=== PATIENT | female | born 1995 | race Caucasian/White ===

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

== ENCOUNTER 2017-04-24 18:54 | Inpatient (IN) | payer OTHER ==
[~2017-04-24] VITALS: Ht 154.9 cm; Wt 49.6 kg
[~2017-04-24 18:54] MED LIST: BCPILLS PO; CYAN1LOZ PO
--- NOTE | 2017-04-24 19:29 | EMERGENCY ROOM VISIT NOTE ---
History Report prepared by Livier: Hilario Miranda Under the Supervision of: Dr. Jacob Lopez M.D. First contact with patient: 18:56 Chief Complaint: MENTAL HEALTH EVALUATION Stated Complaint: MHID History of Present Illness The patient is a 21 year old female who presents to the Emergency Room for a mental health evaluation. She presents via EMS after an attempt at suicide by hanging. The patient wrapped a belt around her neck and attached it to the ceiling. While on a chair, she slipped and fell off the chair. The belt did not hold, and she fell onto the floor. She did not lose consciousness. She denies any neck pain, difficulty swallowing, or difficulty breathing. She has a past history of anxiety, depression, suicidal ideations, and previous suicide attempts. The patient states that she has been going to [facility] for counselling and has not been into a therapist's office. She takes Abilify, Doxycycline, control, and Lexapro. She takes the Doxycycline for her acne, but has not taken it for the past week secondary to not getting her prescription refilled. She has been taking her medications normally without any changes. She notes that she has been in contact with a boy with whom she has been exchanging text messages. She texted him before and after the incident today. Source of History: patient Onset: [employer] Position: other (Mental Health) Symptom Intensity: severe Quality: other (Suicide attempt) Timing: constant Associated Symptoms: No neck pain, No SOB Note: She denies any difficulty swallowing or breathing. Review of Systems See HPI for pertinent positives & negatives. A total of 10 systems reviewed and were otherwise negative. Past Medical & Surgical Medical Problems: (1) Anxiety (2) Depression (3) Suicidal ideation (4) Suicide attempt Family History Patient reports no known family medical history. Social History Smoking Status: Never Smoker Smokeless Tobacco Use: No Drug Use: none Marital Status: single Occupation Status: student Current/Historical Medications Scheduled Aripiprazole (Abilify), 5 MG PO DAILY Control Pills ( Control Pills), 1 TAB PO DAILY Cyanocobalamin (Vitamin B 12), Unknown Dose PO DAILY Doxycycline Monohydrate (Monodox), 100 MG PO DAILY Escitalopram Oxalate (Lexapro), 15 MG PO DAILY Allergies Coded Allergies: No Known Allergies (Unverified , 04/24/17) Physical Exam Vital Signs Date Time Temp Pulse Resp B/P (MAP) Pulse Ox O2 Delivery O2 Flow Rate FiO2 04/24/17 18:55 36.7 68 14 107/64 97 Room Air Physical Exam GENERAL: Patient is a healthy-appearing well-nourished female HEAD: Normocephalic atraumatic EYES: Ocular movements intact pupils equal and react to light OROPHARYNX mucous membranes are moist no exudates present no erythema or edema present NECK: Supple no nuchal rigidity. No signs of trauma. No stridor. No abrasions. CHEST: Good equal expansion LUNGS: Clear and equal to auscultation CARDIAC: Normal S1 and S2 ABDOMEN: Soft nontender no guarding BACK: No CVA tenderness EXTREMITIES: No pain upon palpation normal muscle strength in all groups no clubbing cyanosis or edema NEURO: Patient is following commands and answering questions appropriately. Alert and oriented x3 Cranial Nerves 2-12 grossly intact PSYCH: Flat affect. Admits to trying to hang herself. Medical Decision & Procedures Laboratory Results 04/24/17 19:34 Red Blood Count 3.91, Mean Corpuscular Volume 91.8, Mean Corpuscular Hemoglobin 31.5, Mean Corpuscular Hemoglobin Concent 34.3, Mean Platelet Volume 9.4, Neutrophils (%) (Auto) 54.2, Lymphocytes (%) (Auto) 35.0, Monocytes (%) (Auto) 9.5, Eosinophils (%) (Auto) 0.8, Basophils (%) (Auto) 0.3, Neutrophils # (Auto) 3.31, Lymphocytes # (Auto) 2.14, Monocytes # (Auto) 0.58, Eosinophils # (Auto) 0.05, Basophils # (Auto) 0.02 04/24/17 19:34 Test 04/24/17 19:29 04/24/17 19:34 Bedside Glucose 80 mg/dl (70-90) White Blood Count 6.11 K/uL (4.8-10.8) Red Blood Count 3.91 M/uL (4.2-5.4) Hemoglobin 12.3 g/dL (12.0-16.0) Hematocrit 35.9 % (37-47) Mean Corpuscular Volume 91.8 fL (80-100) Mean Corpuscular Hemoglobin 31.5 pg (25-34) Mean Corpuscular Hemoglobin Concent 34.3 g/dl (32-36) Platelet Count 203 K/uL (130-400) Mean Platelet Volume 9.4 fL (7.4-10.4) Neutrophils (%) (Auto) 54.2 % Lymphocytes (%) (Auto) 35.0 % Monocytes (%) (Auto) 9.5 % Eosinophils (%) (Auto) 0.8 % Basophils (%) (Auto) 0.3 % Neutrophils # (Auto) 3.31 K/uL (1.4-6.5) Lymphocytes # (Auto) 2.14 K/uL (1.2-3.4) Monocytes # (Auto) 0.58 K/uL (0.11-0.59) Eosinophils # (Auto) 0.05 K/uL (0-0.5) Basophils # (Auto) 0.02 K/uL (0-0.2) RDW Standard Deviation 43.2 fL (36.4-46.3) RDW Coefficient of Variation 12.8 % (11.5-14.5) Immature Granulocyte % (Auto) 0.2 % Immature Granulocyte # (Auto) 0.01 K/uL (0.00-0.02) Urine Color DK YELLOW Urine Appearance CLOUDY (CLEAR) Urine pH 6.5 (4.5-7.5) Urine Specific [place] 1.029 (1.000-1.030) Urine Protein NEG (NEG) Urine Glucose (UA) NEG (NEG) Urine Ketones 1+ (NEG) Urine Occult Blood 1+ (NEG) Urine Nitrite NEG (NEG) Urine Bilirubin NEG (NEG) Urine Urobilinogen NEG (NEG) Urine Leukocyte Esterase TRACE (NEG) Urine WBC (Auto) 5-10 /hpf (0-5) Urine RBC (Auto) 0-4 /hpf (0-4) Urine Hyaline Casts (Auto) 0 /lpf (0-5) Urine Epithelial Cells (Auto) >30 /lpf (0-5) Urine Bacteria (Auto) NEG (NEG) Urine Crystals CALCIUM OXALATE (NONE Urine Pathogenic Casts /lpf (0) Urine Mucus PRESENT (NONE PRSENT) Urine Yeast (Auto) (NONE PRSENT) Urine Test NEG (NEG) Anion Gap 10.0 mmol/L (3-11) Est Creatinine Clear Calc Drug Dose 100.3 ml/min Estimated GFR () 147.0 Estimated GFR (Non- 126.8 BUN/Creatinine Ratio 13.5 (10-20) Calcium Level 9.0 mg/dl (8.5-10.1) Total Bilirubin 0.6 mg/dl (0.2-1) Direct Bilirubin 0.2 mg/dl (0-0.2) Aspartate Amino Transf (AST/SGOT) 25 U/L (15-37) Alanine Aminotransferase (ALT/SGPT) 22 U/L (12-78) Alkaline Phosphatase 54 U/L (45-117) Total Protein 7.5 gm/dl (6.4-8.2) Albumin 4.0 gm/dl (3.4-5.0) Thyroid Stimulating Hormone (TSH) 0.979 uIu/ml (0.300-4.500) Urine Opiates Screen NEG (NEG) Urine Methadone, Qualitative NEG (NEG) Urine Barbiturates NEG (NEG) Urine Phencyclidine (PCP) Level NEG (NEG) Ur Amphetamine/Methamphetamine NEG (NEG) MDMA (Ecstasy) Screen NEG (NEG) Urine Benzodiazepines Screen NEG (NEG) Urine Cocaine Metabolite NEG (NEG) Urine Marijuana (THC) NEG (NEG) Ethyl Alcohol mg/dL < 3.0 mg/dl (0-3) Labs reviewed by ED physician. ED Course 1855: Past medical records reviewed. The patient was evaluated in room A8. A complete history and physical examination was performed. 2199: The patient was accepted into [address] [place] [address] for further evaluation. Medical Decision Differential diagnosis: Etiologies such as mood disorder, infection, hypoglycemia, electrolyte abnormalities, cardiac sources, intracerebral event, toxicologic, neurologic, as well as others were entertained. This is a 21-year-old female who presents emergency department complaining of trying to hang herself. Upon arrival to the emergency department she is here under a 302 warrant. Upon arrival the patient is cooperative. She denies any fevers chills abdominal pain or issues eating. I do believe that she is medically clear based on her laboratory work as well as her presentation. She has no evidence of injury to her neck. I did discuss the case at length with both the [facility] liaison as well as psychiatric case management who felt that the patient could sign herself in. Based on my examination as well as the 302 warrant was denied. Patient admitted to [facility]. Medication Reconcilliation Current Medication List: was personally reviewed by me Blood Pressure Screening Patient's blood pressure: Normal blood pressure Blood pressure disposition: Did not require urgent referral Impression Primary Impression: Suicide gesture Scribe Attestation The scribe's documentation has been prepared under my direction and personally reviewed by me in its entirety. I confirm that the note above accurately reflects all work, treatment, procedures, and medical decision making performed by me. Departure Information Dispostion Mental Health Acute Care Referrals [facility] (PCP) Patient Instructions My [facility] Problem Qualifiers Primary Impression: Suicide gesture Encounter type: initial encounter Qualified Codes: X83.8XXA - Intentional self-harm by other specified means, initial encounter
[2017-04-24 19:48] LABS: BASO % 0.3 %; BASO ABS # 0.02 K/uL (0-0.2); COMPLETE YES; EOS % 0.8 %; HEMATOCRIT 35.9 % (37-47); IG% 0.2 %; LYMPH ABS # 2.14 K/uL (1.2-3.4); MEAN CELL VOLUME 91.8 fL (80-100); MEAN CORPUSCULAR HEMOGLOBIN 31.5 pg (25-34); MEAN CORPUSCULAR HGB CONC 34.3 g/dl (32-36); MEAN PLATELET VOLUME 9.4 fL (7.4-10.4); MONO % 9.5 %; NEUT % 54.2 %; PLATELET COUNT 203 K/uL (130-400); RED BLOOD COUNT 3.91 M/uL (4.2-5.4); WHITE BLOOD COUNT 6.11 K/uL (4.8-10.8)
[2017-04-24] MEDS ORDERED: ESCI1TAB6 PO (20:02)
[2017-04-24] MEDS ORDERED: ABL/5 PO (20:02)
[2017-04-24] MEDS ORDERED: DOXY100C76 PO (20:03)
[2017-04-24 20:07] LABS: BUN/CREATININE RATIO 13.5 (10-20); CREATININE 0.68 mg/dl (0.60-1.20); POTASSIUM 3.8 mmol/L (3.5-5.1)
[2017-04-24 20:18] LABS: THYROID STIMULATING HORMONE 0.979 uIu/ml (0.300-4.500)
[2017-04-24 21:30] LABS: URINE APPEARANCE CLOUDY (CLEAR); URINE BILIRUBIN NEG (NEG); URINE COLOR DK YELLOW; URINE EPITHELIAL CELL AUTO >30 /lpf (0-5); URINE NITRITE NEG (NEG); URINE PH 6.5 (4.5-7.5); URINE SPECIFIC GRAVITY 1.029 (1.000-1.030); UROBILINOGEN NEG (NEG)
[2017-04-24 21:35] LABS: MANUAL MICROSCOPIC REQUIRED? NO; REVIEW REQ? YES
[2017-04-24 21:46] LABS: BENZODIAZEPINE, URINE NEG (NEG); COCAINE,URINE NEG (NEG); PHENCYCLIDINE, URINE NEG (NEG)
[2017-04-24 21:48] LABS: URINE MUCUS PRESENT (NONE PRSENT)
[2017-04-24] MEDS ORDERED: NURSING VERBAL MED ORDER ONE ×2 (22:15→23:00)
[2017-04-24 22:28] VITALS: O2SAT 98
[2017-04-24] MEDS ORDERED: MAGNESIUM HYDROXIDE SUSP 30 ML UDC PO PRN (23:00)
[2017-04-24] MEDS ORDERED: ALUMINUM/MAGNESIUM SUSP 30 ML UDC PO PRN (23:00)
[2017-04-24] MEDS ORDERED: BISMUTH SUBSALICYLATE PER ML OMNICELL CHARGE PO PRN (23:00)
[2017-04-24] MEDS ORDERED: hydrOXYzine HCL 25 MG TAB PO PRN ×2 (23:00)
[2017-04-24] MEDS ORDERED: ACETAMINOPHEN 325 MG TAB PO PRN (23:00)
[2017-04-24] MEDS ORDERED: SODIUM CHLORIDE 0.65% NA SOLN 45 ML (OCEAN) PRN (23:00)
[2017-04-24 23:47] VITALS: BP 132/68; PULSE 82; TEMP 36.7; Ht 154.9 cm; Wt 49.6 kg
[2017-04-25] MEDS ORDERED: INFLUENZA VIRUS QUAD VACCINE 0.5 ML SYR IM. ONE (03:00)
[2017-04-25] MEDS ORDERED: INFLUENZA ADMINISTRATION CHARGE ONE (03:00)
[2017-04-25 06:45] VITALS: BP_SYST 100; BP_SYST 99; BP_DIAS 60; BP_DIAS 63; PULSE 65; PULSE 91; TEMP 36.7
--- NOTE | 2017-04-25 07:56 | Psychiatric History & Physical ---
History Date of Service Apr 25, 2017. Identifying Data Beena Virgen is a 21-year-old female [employer] student from the [place] area who lives in [place] in an apartment with roommates, has a history of depression and anxiety and presented after a suicide attempt by hanging. She was brought in by ambulance on a 302 warrant, but was admitted voluntarily. Chief Complaint "I was feeling really depressed and I tried to hang myself". History of Present Illness According to records, the patient presented to the emergency room via EMS last evening after she attempted to hang herself with a belt. She reports a history of depression and anxiety for the past 6-7 years, with worsening mood over the past 2-3 weeks. She had been fighting with her friends, her boyfriend broke up with her, and she was struggling with the loss of her uncle and family conflict. She has a history of 2 previous suicide attempts and 2 previous psychiatric admissions. She initially stated she did not want to stay in the hospital, but ultimately agreed to a voluntary admission, and the emergency room physician dismissed the 302 warrant, which had been completed by police. She is taking psychotropic medications prescribed by her PCP, and reports being on escitalopram for 1 year and aripiprazole for 4 months. She attempted suicide by wrapping a belt around her neck and attaching it to the ceiling, and then stood on a chair, but slipped and fell. The belt did not hold, and she fell onto the floor. She denied loss of consciousness or any physical symptoms as a result. She had apparently been text stating with somebody both before and after the attempt. She reported a strong desire to end her life, and stated that she would probably follow through on suicidal thoughts. Today she was seen with Anna Jackson, MS3. She states she has been struggling with worsening mood and anxiety since returning to school in February, with the above stressors, exacerbated by a falling out with a friend (her ex-boyfriend) that occurred after her therapy appointment at [facility] 04/20/17 (see below). She says the hanging attempt was impulsive, and she used a belt which she wrapped around her neck and then hung it on the hinge of the door, then stood on a chair. She says she then changed her mind, "was freaking out, tried to step away," and almost fell off the chair, and the belt came off the hinge, and she fell to floor. She denies any injuries from the incident. She had been communicating with a friend (the same one who she'd had the falling out with), by text both before and after the incident, and they called the ambulance. She states that she is glad to be alive, and wants to get treatment. She wants to get a regular therapist, communicate better with her friends whom she states are supportive, ad work on using her health coping skills (journaling, engaging in fun activities, exercise, music, art). Her mood was good when she first came back to school, but has progressively become more depressed since her boyfriend broke up with her a month ago, poor sleep with frequent awakening, guilt, low motivation, not using healthy coping skills, and SI. She reports daily anxiety, with episodes of panic and derealization once a week. She feels her current meds are helpful and doesn't necessarily want to change them, feeling that her recent decompensation is due to stressors, not meds. She states symptoms were good and stable until the past month. She denies a history of placido, psychosis, PTSD. She has not talked to her parents re: her admission, says she doesn't want to stress them out and fears they will pull her out of school. She says they had told her that if "something else bad happened," she'd have to withdraw from school. Records from the [facility] were reviewed. She started seeing [facility] therapy on 04/20/2017 , after her friend Faisal brought her in, and participated in the session that the patient's request. At first, the patient asked her friend to talk for her, and it was relayed that the patient and her boyfriend had broken up a month ago and that she was having a difficult time. She also reported family issues, and worsening mood, with a long history of anxiety and depression starting in eighth grade. She was in [employer] at [employer] this past summer, and was doing better until she returned to school. She was supposed to set up care with a therapist in [facility], but did not do so. She reported low mood most days , difficulty getting out of bed, poor energy and concentration, frequent crying , and passive suicidal thoughts with no plan or intent. She reported episodes of self injury (punching her arm and cutting her leg want superficially) since returning to school for the fall. They made a safety plan, and she agreed to stay with her friend, and was to return to [facility] 04/24/2017 for another session. She did not want to pursue hospitalization at that time. Past Psychiatric History Current OP Treatment: therapist (Rachel Keenan at [facility]) Prior OP Treatment: psychiatrist (Dr. Saab) Prior Psych Hospitalizations: other ([facility] in [place] at age 15, and [facility] in 2016 after a suicide attempt by overdose) Access to a Gun: No Suicide Attempts: Yes (choking attempt, and overdose on acne medication in June 2016. She also has a history of self injury by scratching herself in high school.) Past Medication Trials lorazepam - prn, briefly Additional Notes PCP at home, [facility], has been prescribing medication for depression and anxiety. She reports a history of anorexia, which has not been active for years. Past Medical/Surgical History History of Concussion/Seizure: No (1) Acne PCP [facility] , not sexually active Allergies Allergies: Coded Allergies: No Known Allergies (Unverified , 04/24/17) Home Medications Scheduled Aripiprazole (Abilify), 5 MG PO DAILY Control Pills ( Control Pills), 1 TAB PO DAILY Cyanocobalamin (Vitamin B 12), Unknown Dose PO DAILY Doxycycline Monohydrate (Monodox), 100 MG PO DAILY Escitalopram Oxalate (Lexapro), 15 MG PO DAILY Family History Patient reports no known family medical history. History of Suicide: No History of Substance Abuse: Yes (maternal uncle and paternal grandfather and aunt) Psychiatric History: Yes (mother and aunt with depression) Alcohol Use Alcohol Use In Past 12 Months: No AUDIT Total Score: 0 Smoking Use Smoking Status: Never Smoker Substance History Denies substance abuse. Personal History Lives in: [place] in the dorms - has single room Childhood: From [place] in the [place] area, raised by both parents, the oldest of 4 children. Describes mother as controlling, and father is passive. Education: started college ([employer] student majoring in chemistry, doing well in all except one class, but has missed class in past week) Work History: doesn't work, student Relationship History: never (recently had a breakup with her boyfriend) Children: denies Spiritual Affiliation: raised Lutheran Legal History: none Psychological Trauma History: Denies Hx Traumatic Event Review of Systems 10 systems reviewed, negative except as stated above. Examination Physical Examination A physical exam was performed in the ER prior to admission to the unit by Dr. Lopez. I accept that physical as correct/medical clearance for the inpatient physical exam. Vital Signs Vital Signs Past 12 Hours Date Time Temp Pulse Resp B/P (MAP) Pulse Ox O2 Delivery O2 Flow Rate FiO2 04/25/17 06:45 36.7 65 16 99/60 91 100/63 04/24/17 23:47 36.7 82 17 132/68 04/24/17 22:28 74 17 132/68 98 04/24/17 22:11 74 17 132/68 98 Room Air Laboratory Results Last 24 Hours Test 04/24/17 19:29 04/24/17 19:34 Bedside Glucose 80 mg/dl White Blood Count 6.11 K/uL Red Blood Count 3.91 M/uL Hemoglobin 12.3 g/dL Hematocrit 35.9 % Mean Corpuscular Volume 91.8 fL Mean Corpuscular Hemoglobin 31.5 pg Mean Corpuscular Hemoglobin Concent 34.3 g/dl Platelet Count 203 K/uL Mean Platelet Volume 9.4 fL Neutrophils (%) (Auto) 54.2 % Lymphocytes (%) (Auto) 35.0 % Monocytes (%) (Auto) 9.5 % Eosinophils (%) (Auto) 0.8 % Basophils (%) (Auto) 0.3 % Neutrophils # (Auto) 3.31 K/uL Lymphocytes # (Auto) 2.14 K/uL Monocytes # (Auto) 0.58 K/uL Eosinophils # (Auto) 0.05 K/uL Basophils # (Auto) 0.02 K/uL RDW Standard Deviation 43.2 fL RDW Coefficient of Variation 12.8 % Immature Granulocyte % (Auto) 0.2 % Immature Granulocyte # (Auto) 0.01 K/uL Urine Color DK YELLOW Urine Appearance CLOUDY Urine pH 6.5 Urine Specific Jenkins 1.029 Urine Protein NEG Urine Glucose (UA) NEG Urine Ketones 1+ Urine Occult Blood 1+ Urine Nitrite NEG Urine Bilirubin NEG Urine Urobilinogen NEG Urine Leukocyte Esterase TRACE Urine WBC (Auto) 5-10 /hpf Urine RBC (Auto) 0-4 /hpf Urine Hyaline Casts (Auto) 0 /lpf Urine Epithelial Cells (Auto) >30 /lpf Urine Bacteria (Auto) NEG Urine Crystals CALCIUM OXALATE Urine Pathogenic Casts /lpf Urine Mucus PRESENT Urine Yeast (Auto) Urine Test NEG Sodium Level 141 mmol/L Potassium Level 3.8 mmol/L Chloride Level 109 mmol/L Carbon Dioxide Level 22 mmol/L Anion Gap 10.0 mmol/L Blood Urea Nitrogen 9 mg/dl Creatinine 0.68 mg/dl Est Creatinine Clear Calc Drug Dose 100.3 ml/min Estimated GFR () 147.0 Estimated GFR (Non- 126.8 BUN/Creatinine Ratio 13.5 Random Glucose 80 mg/dl Calcium Level 9.0 mg/dl Total Bilirubin 0.6 mg/dl Direct Bilirubin 0.2 mg/dl Aspartate Amino Transf (AST/SGOT) 25 U/L Alanine Aminotransferase (ALT/SGPT) 22 U/L Alkaline Phosphatase 54 U/L Total Protein 7.5 gm/dl Albumin 4.0 gm/dl Thyroid Stimulating Hormone (TSH) 0.979 uIu/ml Urine Opiates Screen NEG Urine Methadone, Qualitative NEG Urine Barbiturates NEG Urine Phencyclidine (PCP) Level NEG Ur Amphetamine/Methamphetamine NEG MDMA (Ecstasy) Screen NEG Urine Benzodiazepines Screen NEG Urine Cocaine Metabolite NEG Urine Marijuana (THC) NEG Ethyl Alcohol mg/dL < 3.0 mg/dl Mental Examination During interview pt is: alert and oriented, cooperative Appearance: appropriately dressed, appropriately groomed, disheveled Eye contact is: good Motor behavior is: steady gait & station, no abnormal motor movements Speech: normal in rate, rhythm & volume Affect: mood congruent Mood is: other ("actually pretty good") Thought process: goal directed, linear, logical, clear, coherent Thought content: reality based without delusions Suicidal thought are: denied (but admits to suicide attempt yesterday by hanging) Homicidal thoughts are: denied Hallucinations: denies auditory, denies visual Cognition: memory grossly intact, attention grossly intact, language grossly intact Intelligence estimated to be: consistent with level of education Insight: fair Judgement: fair Impression / Recommendations Inventory Assets Strengths: Motivated for treatment, on medications that she thinks help, has supportive friends Risk Factors Assessment : Yes /single/: Yes Higher / Fall in social status: No Access to guns: No Health problems: No Mental Health Diagnoses: Yes Substance use disorders: No Previous attempt: Yes Family history of suicide: No Previous psychiatric stay: Yes Hopelessness: No Smoker: No Protective Factors Assessment Catholic beliefs: No : No Responsible for young children: No Employed: No Stable relationships: No Supportive family: No Good rapport with provider: No Recommendations (1) Depression 04/25 - Although the patient reports worsening mood over the past month, she attributes this primarily to psychosocial stressors, and does not want to change her medications at this time. We will continue escitalopram 15 mg daily and aripiprazole 5 mg daily, and order fasting labs for monitoring on an atypical antipsychotic, as she does not know if she has ever had these done before. Continue to monitor mood and anxiety symptoms here, and consider medication adjustments may be helpful. - Encourage attendance and participation in groups and therapy on the unit. Work on healthy coping skills and the discharge safety plan. - Get records from outpatient PCP, who is prescribing psychotropic medications, and refer her for outpatient psychiatric care moving forward. She will also need a referral for outpatient therapy. - Recommend a family meeting with parents, which she was initially refusing, but is now considering. She is concerned that they will want her to withdraw from school, as she has had 2 suicide attempts in the past, and apparently there was some discussion of withdrawing from school if she had another one. - Coordinate with the [place] office of student affairs and [facility]. (2) Anxiety Continue home medications as above. (3) Acne Continue home dose of doxycycline. (4) Suicide attempt Patient attempted suicide by hanging, fortunately sustains no physical injuries as a result. CPT Code Initial Hospital Care: 23464 Problem Qualifiers (1) Depression: Depression Type: major depressive disorder Major depression recurrence: recurrent Major depression episode severity: severe Psychotic features: without psychotic features
[2017-04-25] MEDS: BCP'S~ORDER AWAITING ACTION SCH ×3 (08:00→15:22)
[2017-04-25] MEDS: ARIPIprazole TAB 5 MG TAB PO SCH (08:49)
[2017-04-25] MEDS: ESCITALOPRAM OXALATE 10 MG TAB PO SCH (08:50)
[2017-04-25] MEDS: DOXYCYCLINE HYCLATE 100 MG CAP PO SCH (08:50)
[2017-04-26 06:49] VITALS: BP_SYST 108; BP_SYST 95; BP_DIAS 57; BP_DIAS 62; PULSE 62; PULSE 78; TEMP 36.7
[2017-04-26 09:08] LABS: CHOLESTEROL/HDL RATIO 2.1
[2017-04-26] MEDS: ARIPIprazole TAB 5 MG TAB PO SCH (09:34)
[2017-04-26] MEDS: ESCITALOPRAM OXALATE 10 MG TAB PO SCH (09:34)
[2017-04-26] MEDS: DOXYCYCLINE HYCLATE 100 MG CAP PO SCH (09:35)
--- NOTE | 2017-04-26 11:08 | Psychiatric Progress Notes ---
Progress Note Date of Service Apr 26, 2017. Interval History 21-year-old [employer] student from the [facility] who has a history of depression, anxiety, multiple suicide attempts and hospitalizations, who presented after a suicide attempt by hanging. She came in on a 203 warrant with police, but ultimately signed in voluntarily. Chief Complaint "Okay". Subjective Patient was seen & assessed interval progress reviewed with Nursing. Staff report she is attending groups and participating, and spend her free time socializing with peers. Today, she was seen with Anna Jackson MS3. She reports mood is "ok" today, and denies any recurrence of suicidal thoughts since admission. She states that her goal for today is to talk with her parents, and she is willing to do that with social work present. Her mood was lower after a phone conversation with her ex-boyfriend, where he told her that he could be her friend, but not her best friend. She feels she is dealing with this as best she can. She is willing for a family meeting with parents over the phone today, although she remains worried about causing them to feel overwhelmed, as they already have multiple stressors. She continues to feel her medications are working well at their current doses, and does not want to change them. Sleep Information Total Hours of Sleep: 8.50 Meal Information Percent of Breakfast Consumed: 100 Percent of Lunch Consumed: 75 Percent of Dinner Consumed: 100 Mental Status Exam During interview pt is: alert and oriented, cooperative Appearance: appropriately dressed, appropriately groomed, other (Just showered) Eye contact is: good Motor behavior is: steady gait & station, no abnormal motor movements Speech: normal in rate, rhythm & volume Affect: mood congruent, euthymic Mood is: other ("ok") Thought process: goal directed, linear, logical, clear, coherent Thought content: reality based without delusions Suicidal thought are: denied (but admits to suicide attempt on 04/24/17 by hanging) Homicidal thoughts are: denied Hallucinations: denies auditory, denies visual Cognition: memory grossly intact, attention grossly intact, language grossly intact Intelligence estimated to be: consistent with level of education Insight: fair Judgement: fair Impression 21-year-old single female [employer] student from the [facility] who has a history of depression, anxiety, multiple past suicide attempts and hospitalizations, and presents after another suicide attempt by hanging on 04/24. She is on medications prescribed by her PCP at home, and had not yet arranged local psychiatric care or therapy upon returning to school for the fall. She is willing to follow-up with outpatient providers, and although she has been reluctant to involve her parents, is agreeing to a family meeting with them today. She does not want medication changes, feeling that her suicidality occurred as a result of relationship discord with an ex-boyfriend, but would benefit from working on healthy coping skills and her discharge safety plan. Plan (1) Depression 04/25 - Although the patient reports worsening mood over the past month, she attributes this primarily to psychosocial stressors, and does not want to change her medications at this time. We will continue escitalopram 15 mg daily and aripiprazole 5 mg daily, and order fasting labs for monitoring on an atypical antipsychotic, as she does not know if she has ever had these done before. Continue to monitor mood and anxiety symptoms here, and consider medication adjustments may be helpful. - Encourage attendance and participation in groups and therapy on the unit. Work on healthy coping skills and the discharge safety plan. - Get records from outpatient PCP, who is prescribing psychotropic medications, and refer her for outpatient psychiatric care moving forward. She will also need a referral for outpatient therapy. - Recommend a family meeting with parents, which she was initially refusing, but is now considering. She is concerned that they will want her to withdraw from school, as she has had 2 suicide attempts in the past, and apparently there was some discussion of withdrawing from school if she had another one. - Coordinate with the [place] office of student affairs and [facility]. 04/26 - Continue current medications, and have a family meeting with parents today. - Refer for outpatient therapy and psychiatric follow-up. (2) Anxiety Continue home medications as above. (3) Acne Continue home dose of doxycycline. (4) Suicide attempt Patient attempted suicide by hanging, fortunately sustains no physical injuries as a result. Discharge / Aftercare Planning Primary Care Physician: Name: [facility] Psychiatrist: Name: Dr Duff Date of Appointment: May 17, 2017 Time of Appointment: 2:00pm Therapist: Name: MARILYN 1X Visit Code E&M Code: 35437 Inventory Assets Strengths: Motivated for treatment, on medications that she thinks help, has supportive friends Risk Factors Assessment : Yes /single/: Yes Higher / Fall in social status: No Health problems: No Mental Health Diagnoses: Yes Substance use disorders: No Previous attempt: Yes Family history of suicide: No Previous psychiatric stay: Yes Hopelessness: No Smoker: No Protective Factors Assessment Bahai beliefs: No : No Responsible for young children: No Employed: No Stable relationships: No Supportive family: No Good rapport with provider: No Data Vital Signs Last 24 Hrs: Date Time Temp Pulse Resp B/P (MAP) Pulse Ox O2 Delivery O2 Flow Rate FiO2 04/26/17 06:49 36.7 62 16 108/62 78 95/57 Meds Administered Last 24 Hrs: Meds Administered (Past 24Hrs) Medications (Trade) Dose Ordered Sig/Gab Route Start Time Stop Time Status Last Admin Dose Admin Escitalopram Oxalate (Lexapro Tab) 15 mg DAILY PO 04/25/17 09:00 05/25/17 08:59 04/26/17 09:34 15 MG Aripiprazole (Abilify Tab) 5 mg DAILY PO 04/25/17 09:00 05/25/17 08:59 04/26/17 09:34 5 MG Doxycycline Hyclate (Vibramycin Cap) 100 mg DAILY PO 04/25/17 09:00 05/25/17 08:59 04/26/17 09:35 100 MG Influenza Virus Vaccine Quadrival (Flucelvax Quad Vaccine) 0.5 ml ONCE ONCE IM. 04/25/17 03:00 04/25/17 03:05 DC 04/25/17 13:48 0.5 ML Lab Results Last 24 Hrs: Last 24 Hours Test 04/26/17 08:17 Fasting Glucose 81 mg/dl Triglycerides Level 62 mg/dl Cholesterol Level 138 mg/dl HDL Cholesterol 67 mg/dl LDL Cholesterol, Calculated 59 mg/dl VLDL Cholesterol, Calculated 12 mg/dl Cholesterol/HDL Ratio 2.1 Problem Qualifiers (1) Depression: Depression Type: major depressive disorder Major depression recurrence: recurrent Major depression episode severity: severe Psychotic features: without psychotic features
--- NOTE | 2017-04-26 14:41 | Medical Student: BHU Only ---
Psychiatric Progress Note SUBJECTIVE: Abilio is a 21-year-old female with a history of depression and anxiety who was seen and assessed today. She reports doing "okay, worse than when I woke up. " She explained that her mood worsened throughout the day because she had spoken to her ex-boyfriend on the phone and he told her that they could be friends but that she was not his best friend. This was disappointing to Abilio because she cares about him more than he cares about her. Overall, however, Abilio comments that her mood is improved since before her suicide attempt and attributes that to being "happy [she] is alive" and says she is "sad but not depressed." She reports being more hopeful today and is looking forward to discharge so she can return to school, spend time with her friends, and partake in her hobbies such as dancing. ROS: Nursing staff reports Abilio sleeping for 8.5 hours last night. Abilio says she slept well. Describes her appetite as good and says she has been hungry and eating meals regularly. Abilio reports feeling good levels of energy. She says her concentration is normal or better than it used to be, also attributing this to being alive after her suicide attempt. MSE: Appearance is that of an appropriately groomed, recently showered, casually dressed female who appears her stated age. The patient is pleasant and cooperative with the interview. She consistently made eye contact throughout the interview. Motor behavior is normal. Speech: volume, rate, and tone were normal. Affect: euthymic and congruent with mood. Mood: "okay". Thought process: goal-directed, linear, logical, clear. Thought content: denies SI or HI (but had attempted a suicide attempt by hanging resulting in hospital admission). Perception: normal. Cognition: memory, language, and attention appear to be intact. Insight is estimated to be fair. Judgment is estimated to be fair. ASSESSMENT: Abilio is a 21-year-old female [employer] student with a past psychiatric history of depression, anxiety, and previous suicide attempts and hospitalizations who presented to the ED on 04/24/17 following another suicide attempt by hanging, triggered by psychosocial stressors. She sustained no physical injuries following the suicide attempt. Her depression and anxiety are controlled with escitalopram 15 mg and aripiprazole 5 mg, prescribed by her PCP at home, and will be continued. Although she was initially unwilling to inform her family of her admission, she would like to tell them and have a family meeting. PLAN: 1. Depression a. Maintained her medication dosages of escitalopram 15 mg and aripiprazole 5 mg. States that she does not want the medication doses altered despite her suicide attempt, explaining that the attempt was triggered mostly by stressors in her life, specifically her worsening relationship with her ex-boyfriend. b. Arrange for a family meeting with director social service today to inform them of her admission to the behavioral health unit. 2. Anxiety a. Continue aforementioned home medications. 3. Suicide precautions will be maintained to help provide for patient safety while in the hospital. 4. Aftercare Planning: a. Refer for outpatient therapy with an off-campus provider and psychiatric follow-up for management of depression and anxiety. Date of Service: Apr 26, 2017.
[2017-04-26] MEDS: BCP'S~ORDER AWAITING ACTION SCH (15:26)
[2017-04-27 06:44] VITALS: BP_SYST 108; BP_SYST 97; BP_DIAS 61; BP_DIAS 65; PULSE 56; PULSE 88; TEMP 36.5
[2017-04-27] MEDS: ARIPIprazole TAB 5 MG TAB PO SCH (09:37)
[2017-04-27] MEDS: DOXYCYCLINE HYCLATE 100 MG CAP PO SCH (09:37)
[2017-04-27] MEDS: ESCITALOPRAM OXALATE 10 MG TAB PO SCH (09:37)
[2017-04-27] MEDS ORDERED: ABL/5 PO (12:42)
--- NOTE | 2017-04-27 12:48 | Discharge Instructions ---
Discharge Information Report Includes Report will include the: Discharge Instructions & Summary Admission Admission Date / Time: Apr 24, 2017 at 22:08 Reason for Admission: Mood Disorder Nos Discharge Discharge Diagnosis / Problem: Depression Condition at Discharge: Good Discharge Goals Goal(s): Decrease discomfort, Improve disease control, Prevent Disease Progression Activity Recommendations Activity Limitations: resume your previous activity . Instructions / Follow-Up Instructions / Follow-Up . SPECIAL CARE INSTRUCTIONS: 1. Follow through with your scheduled aftercare appointments. If unable to keep an appointment, please call to reschedule. 2. Take your medication only as prescribed. Medication should not be changed or stopped without the approval of your doctor. In the event of worsening symptoms or concerns about side effects, contact your doctor immediately. 3. Utilize new healthy coping skills, anger management skills, and stress management skills learned during your hospitalization. Journal feelings and process them with a support person. Identify stressors or situations that may result in relapse, deterioration or inappropriate behaviors and develop a plan to deal with those issues. 4. If your coping skills are ineffective and you are in crisis, contact your outpatient providers for direction. If unable to reach your providers, please call the CAN HELP LINE AT or go to the closest Emergency Room. 5. Avoid alcohol and un-prescribed drugs. 6. You have been provided with the Mental Health Advance Directives Pamphlet for your review. AFTERCARE APPOINTMENTS: * Please call your insurance company prior to your scheduled appointment to confirm your aftercare providers are covered. Take your insurance information to your appointments. . Discharge / Aftercare Planning Primary Care Physician: Name: [facility] Appointment Notes: As needed Psychiatrist: Name: Dr Duff Date of Appointment: May 17, 2017 Time of Appointment: 2:00pm Appointment Notes: [address] [facility] [address] Therapist: Name Of Therapist: Dr Howie Taylor Date of Appointment: May 01, 2017 Time of Appointment: 7:00pm Appointment Comments: [address] [facility] [address] [place] [address] . Follow-Up Care Plan for Follow-Up Care: Will see her psychiatris 05/17 and her therapist 05/01 Current Hospital Diet Patient's current hospital diet: Regular Diet Discharge Diet Recommended Diet: Regular Diet Procedures Procedures Performed: No Pending Studies Pending Studies at Discharge: No Medical Emergencies . Who to Call and When: Medical Emergencies: For questions or emergencies related to your hospital stay, please contact the Inpatient Behavioral Health Unit at [phone]. A ceo & board director is on-call 12/02 for the Behavioral Health Unit for emergencies At any time you feel your situation is an emergency, you may also call 911 immediately. . Non-Emergent Contact Non-Emergency issues call your: Psychiatrist, Therapist Advance Directives Existing Advance Directive: No Do You Have an Existing Mental: No Existing Living Will: No Existing Power of Cable Operator: No Advance Directives Info Given: To Pt/S.O. Advance Directives Reason: Declines as Mental Health Visit. Discharge Summary Admission HPI Per the Admitting provider: According to records, the patient presented to the emergency room via EMS last evening after she attempted to hang herself with a belt. She reports a history of depression and anxiety for the past 6-7 years, with worsening mood over the past 2-3 weeks. She had been fighting with her friends, her boyfriend broke up with her, and she was struggling with the loss of her uncle and family conflict. She has a history of 2 previous suicide attempts and 2 previous psychiatric admissions. She initially stated she did not want to stay in the hospital, but ultimately agreed to a voluntary admission, and the emergency room physician dismissed the 302 warrant, which had been completed by police. She is taking psychotropic medications prescribed by her PCP, and reports being on escitalopram for 1 year and aripiprazole for 4 months. She attempted suicide by wrapping a belt around her neck and attaching it to the ceiling, and then stood on a chair, but slipped and fell. The belt did not hold, and she fell onto the floor. She denied loss of consciousness or any physical symptoms as a result. She had apparently been text stating with somebody both before and after the attempt. She reported a strong desire to end her life, and stated that she would probably follow through on suicidal thoughts. Today she was seen with Anna Jackson MS3. She states she has been struggling with worsening mood and anxiety since returning to school in February, with the above stressors, exacerbated by a falling out with a friend (her ex-boyfriend) that occurred after her therapy appointment at [facility] 04/20/17 (see below). She says the hanging attempt was impulsive, and she used a belt which she wrapped around her neck and then hung it on the hinge of the door, then stood on a chair. She says she then changed her mind, "was freaking out, tried to step away," and almost fell off the chair, and the belt came off the hinge, and she fell to floor. She denies any injuries from the incident. She had been communicating with a friend (the same one who she'd had the falling out with), by text both before and after the incident, and they called the ambulance. She states that she is glad to be alive, and wants to get treatment. She wants to get a regular therapist, communicate better with her friends whom she states are supportive, ad work on using her health coping skills (journaling, engaging in fun activities, exercise, music, art). Her mood was good when she first came back to school, but has progressively become more depressed since her boyfriend broke up with her a month ago, poor sleep with frequent awakening, guilt, low motivation, not using healthy coping skills, and SI. She reports daily anxiety, with episodes of panic and derealization once a week. She feels her current meds are helpful and doesn't necessarily want to change them, feeling that her recent decompensation is due to stressors, not meds. She states symptoms were good and stable until the past month. She denies a history of placido, psychosis, PTSD. She has not talked to her parents re: her admission, says she doesn't want to stress them out and fears they will pull her out of school. She says they had told her that if "something else bad happened," she'd have to withdraw from school. Records from the [facility] were reviewed. She started seeing Rachel Keenan for therapy on 04/20/2017 , after her friend Faisal brought her in, and participated in the session that the patient's request. At first, the patient asked her friend to talk for her, and it was relayed that the patient and her boyfriend had broken up a month ago and that she was having a difficult time. She also reported family issues, and worsening mood, with a long history of anxiety and depression starting in eighth grade. She was in IOP at [facility] this past summer, and was doing better until she returned to school. She was supposed to set up care with a therapist [facility], but did not do so. She reported low mood most days , difficulty getting out of bed, poor energy and concentration, frequent crying , and passive suicidal thoughts with no plan or intent. She reported episodes of self injury (punching her arm and cutting her leg want superficially) since returning to school for the fall. They made a safety plan, and she agreed to stay with her friend, and was to return to [facility] 04/24/2017 for another session. She did not want to pursue hospitalization at that time. Hospital Course (1) Depression 04/25 - Although the patient reports worsening mood over the past month, she attributes this primarily to psychosocial stressors, and does not want to change her medications at this time. We will continue escitalopram 15 mg daily and aripiprazole 5 mg daily, and order fasting labs for monitoring on an atypical antipsychotic, as she does not know if she has ever had these done before. Continue to monitor mood and anxiety symptoms here, and consider medication adjustments may be helpful. - Encourage attendance and participation in groups and therapy on the unit. Work on healthy coping skills and the discharge safety plan. - Get records from outpatient PCP, who is prescribing psychotropic medications, and refer her for outpatient psychiatric care moving forward. She will also need a referral for outpatient therapy. - Recommend a family meeting with parents, which she was initially refusing, but is now considering. She is concerned that they will want her to withdraw from school, as she has had 2 suicide attempts in the past, and apparently there was some discussion of withdrawing from school if she had another one. - Coordinate with the [place] office of student affairs and [facility]. 04/26 - Continue current medications, and have a family meeting with parents today. - Refer for outpatient therapy and psychiatric follow-up. (2) Anxiety Continue home medications as above. (3) Acne Continue home dose of doxycycline. (4) Suicide attempt Patient attempted suicide by hanging, fortunately sustains no physical injuries as a result. Risk Factors Assessment : Yes /single/: Yes Higher / Fall in social status: No Health problems: No Mental Health Diagnoses: Yes Substance use disorders: No Previous attempt: Yes Family history of suicide: No Previous psychiatric stay: Yes Hopelessness: No Smoker: No Protective Factors Assessment Adventist beliefs: No : No Responsible for young children: No Employed: No Stable relationships: No Supportive family: No Good rapport with provider: No Day of Discharge Assessment COURSE OF HOSPITALIZATION: The patient has been on our unit for 3 days. She was admitted following a suicide attempt by hanging. She had recently gone through a breakup with a boyfriend and the of an uncle contributing to her depression. She has been depressed for 6 or 7 years and in treatment with Dr. Duff. She did not want medication changes on admission and so she was continued on Lexapro 15 mg daily and Abilify 5 mg daily. She was initially hesitant to allow anyone to know she was in the hospital including not signing the authorizations and assignments for her insurance to be billed. She eventually relented, signed the form and was willing to call her parents and let them know that she was depressed and in the hospital but did not let them know that she had made a suicide attempt. She didn't want them to be involved any further. She very quickly had a flight into health, feeling better and wanting to attend a dance competition that she has this Sunday. She ceased to have any suicidal thinking throughout her stay and was willing to safety plan for discharge. DAY OF DISCHARGE ASSESSMENT: Today the patient is requesting discharge. She continues to deny suicidal ideation and says that her mood is "happy, hopeful". She said she had visits from several friends last evening which went well and she has a friend who says she can come and stay with her for several days after discharge. I expressed concern about not having anyone in the dorm who is aware of or will be able to support her during test times and she was agreeable to having a phone session with her residential green building designer prior to discharge. She says that she feels "capable of using my skills "now where she did not previously. She reports good sleep and appetite. Today she is casually and appropriately dressed and groomed. Eye contact is good. Gait and station are within normal limits. Affect is restricted. Speech is of normal rate volume and tone. Thoughts are organized, goal directed, and without evidence of thought disorder. Recent and remote memory are intact per conversation. Intelligence is estimated to be average. Insight and judgment are improved over admission. Laboratory Test 04/24/17 19:29 10/3/17 19:34 04/26/17 08:17 POC Glucose 80 White Blood Count 6.11 Red Blood Count 3.91 Hemoglobin 12.3 Hematocrit 35.9 Mean Corpuscular Volume 91.8 Mean Corpuscular Hemoglobin 31.5 Mean Corpuscular Hemoglobin Concent 34.3 Platelet Count 203 Mean Platelet Volume 9.4 Neutrophils (%) (Auto) 54.2 Lymphocytes (%) (Auto) 35.0 Monocytes (%) (Auto) 9.5 Eosinophils (%) (Auto) 0.8 Basophils (%) (Auto) 0.3 Neutrophils # (Auto) 3.31 Lymphocytes # (Auto) 2.14 Monocytes # (Auto) 0.58 Eosinophils # (Auto) 0.05 Basophils # (Auto) 0.02 RDW Standard Deviation 43.2 RDW Coefficient of Variation 12.8 Immature Granulocyte % (Auto) 0.2 Immature Granulocyte # (Auto) 0.01 Urine Color DK YELLOW Urine Appearance CLOUDY Urine pH 6.5 Urine Specific [place] 1.029 Urine Protein NEG Urine Glucose (UA) NEG Urine Ketones 1+ Urine Occult Blood 1+ Urine Nitrite NEG Urine Bilirubin NEG Urine Urobilinogen NEG Urine Leukocyte Esterase TRACE Urine WBC (Auto) 5-10 Urine RBC (Auto) 0-4 Urine Hyaline Casts (Auto) 0 Urine Epithelial Cells (Auto) >30 Urine Bacteria (Auto) NEG Urine Crystals CALCIUM OXALATE Urine Pathogenic Casts Urine Mucus PRESENT Urine Yeast (Auto) Urine Test NEG Sodium Level 141 Potassium Level 3.8 Chloride Level 109 Carbon Dioxide Level 22 Anion Gap 10.0 Blood Urea Nitrogen 9 Creatinine 0.68 Est Creatinine Clear Calc Drug Dose 100.3 Estimated GFR () 147.0 Estimated GFR (Non- 126.8 BUN/Creatinine Ratio 13.5 Random Glucose 80 Calcium Level 9.0 Total Bilirubin 0.6 Direct Bilirubin 0.2 Aspartate Amino Transferase (AST) 25 Alanine Aminotransferase (ALT) 22 Alkaline Phosphatase 54 Total Protein 7.5 Albumin 4.0 Thyroid Stimulating Hormone (TSH) 0.979 Urine Opiates Screen NEG Urine Methadone, Qualitative NEG Urine Barbiturates NEG Urine Phencyclidine (PCP) Level NEG Ur Amphetamine/Methamphetamine NEG MDMA (Ecstasy) Screen NEG Urine Benzodiazepines Screen NEG Urine Cocaine Metabolite NEG Urine Marijuana (THC) NEG Ethyl Alcohol mg/dL < 3.0 Fasting Glucose 81 Triglycerides Level 62 Cholesterol Level 138 HDL Cholesterol 67 LDL Cholesterol, Calculated 59 VLDL Cholesterol, Calculated 12 Cholesterol/HDL Ratio 2.1 Tobacco Cessation at Discharge Smoking Status: Never Smoker FDA approved Prescription: non-smoker Problem Qualifiers (1) Depression: Depression Type: major depressive disorder Major depression recurrence: recurrent Major depression episode severity: severe Psychotic features: without psychotic features
== END 2017-04-27 14:56 | disposition home or self-care (01) | DRG 885 ==
LOC: EDBD 18:54 → C.EDA 18:58 → C.MHU 22:08 → ENRESERV 22:40
PROVIDERS: ADMIT Student in an Organized Health Care Education/Training Program; ATTEND Psychiatry & Neurology Psychiatry
DX: F33.2 Major depressive disorder, recurrent severe without psychotic features (principal); F41.9 Anxiety disorder, unspecified; X83.8XXA Intentional self-harm by other specified means, initial encounter; Z91.5 Personal history of self-harm; L70.9 Acne, unspecified; Z79.2 Long term (current) use of antibiotics; Z79.3 Long term (current) use of hormonal contraceptives; Z79.899 Other long term (current) drug therapy; Z81.8 Family history of other mental and behavioral disorders

== ENCOUNTER 2017-05-11 03:54 | Emergency (ER) | payer OTHER ==
[~2017-05-11] VITALS: Ht 154.9 cm; Wt 49.9 kg
[~2017-05-11 03:54] MED LIST changes: +ABL/5 PO; +DOXY100C76 PO; +ESCI1TAB6 PO
[2017-05-11 04:32] VITALS: TEMP 36.9; Ht 154.9 cm; Wt 49.9 kg
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
[2017-05-11] MEDS ORDERED: ABL/5 PO (04:36)
[2017-05-11 04:54] LABS: BASO % 0.3 %; BASO ABS # 0.02 K/uL (0-0.2); COMPLETE YES; EOS % 0.6 %; HEMATOCRIT 37.3 % (37-47); IG% 0.1 %; LYMPH % 36.2 %; LYMPH ABS # 2.52 K/uL (1.2-3.4); MEAN CELL VOLUME 90.5 fL (80-100); MEAN CORPUSCULAR HEMOGLOBIN 31.1 pg (25-34); MEAN CORPUSCULAR HGB CONC 34.3 g/dl (32-36); MEAN PLATELET VOLUME 9.5 fL (7.4-10.4); MONO % 7.7 %; NEUT % 55.1 %; PLATELET COUNT 272 K/uL (130-400); RED BLOOD COUNT 4.12 M/uL (4.2-5.4); WHITE BLOOD COUNT 6.97 K/uL (4.8-10.8)
[2017-05-11 04:59] LABS: URINE APPEARANCE CLOUDY (CLEAR); URINE BILIRUBIN NEG (NEG); URINE COLOR DK YELLOW; URINE EPITHELIAL CELL AUTO >30 /lpf (0-5); URINE NITRITE POS (NEG); URINE PH 5.5 (4.5-7.5); URINE SPECIFIC GRAVITY 1.026 (1.000-1.030); UROBILINOGEN NEG (NEG)
[2017-05-11 05:01] LABS: MANUAL MICROSCOPIC REQUIRED? NO; REVIEW REQ? NO
[2017-05-11 05:10] LABS: PREG INTERNAL NEGATIVE QC NEG CLEAR BACKGROUND; PREG INTERNAL POSITIVE QC POS CONTROL LINE
[2017-05-11 05:14] LABS: BUN/CREATININE RATIO 18.6 (10-20); CALCIUM 8.8 mg/dl (8.5-10.1); CREATININE 0.74 mg/dl (0.60-1.20); POTASSIUM 3.4 mmol/L (3.5-5.1)
[2017-05-11 05:15] LABS: BENZODIAZEPINE, URINE NEG (NEG); COCAINE,URINE NEG (NEG); PHENCYCLIDINE, URINE NEG (NEG)
[2017-05-11 05:24] LABS: THYROID STIMULATING HORMONE 1.92 uIu/ml (0.300-4.500)
[2017-05-11] MEDS ORDERED: CEFTRIAXONE SOD INJ 1 GM ADDVIAL IV STA (05:33)
--- NOTE | 2017-05-11 14:17 | EMERGENCY ROOM VISIT NOTE ---
ED Visit Note First contact with patient: 07:24 21-year-old female with depression was signed off to me at change of shift from Dr. Cool. The patient was reevaluated at 1405. The patient has been accepted at the [facility] and is now awaiting transport there.
[2017-05-11 18:47] VITALS: BP 125/70; PULSE 95; O2SAT 97
== END 2017-05-11 18:52 ==
LOC: EDBD 03:54 → C.EDA 03:55
DX: F23 Brief psychotic disorder (principal); F32.9 Major depressive disorder, single episode, unspecified; F41.1 Generalized anxiety disorder; R45.851 Suicidal ideations; Z79.3 Long term (current) use of hormonal contraceptives; Z79.899 Other long term (current) drug therapy

== ENCOUNTER 2017-06-28 12:14 | Inpatient (IN) | payer OTHER ==
[~2017-06-28] VITALS: Ht 154.9 cm; Wt 49.6 kg
[~2017-06-28 12:14] MED LIST changes: -CYAN1LOZ PO
[2017-06-28 13:46] LABS: PREG INTERNAL NEGATIVE QC NEG CLEAR BACKGROUND; PREG INTERNAL POSITIVE QC POS CONTROL LINE
[2017-06-28 13:51] LABS: HEMATOCRIT 36.7 % (37-47); MEAN CELL VOLUME 91.3 fL (80-100); MEAN CORPUSCULAR HEMOGLOBIN 31.3 pg (25-34); MEAN CORPUSCULAR HGB CONC 34.3 g/dl (32-36); MEAN PLATELET VOLUME 9.8 fL (7.4-10.4); PLATELET COUNT 217 K/uL (130-400); RED BLOOD COUNT 4.02 M/uL (4.2-5.4); WHITE BLOOD COUNT 6.74 K/uL (4.8-10.8)
[2017-06-28 14:08] LABS: BUN/CREATININE RATIO 19.6 (10-20); CALCIUM 8.8 mg/dl (8.5-10.1); CREATININE 0.66 mg/dl (0.60-1.20); POTASSIUM 3.7 mmol/L (3.5-5.1)
[2017-06-28 14:12] LABS: BENZODIAZEPINE, URINE NEG (NEG); COCAINE,URINE NEG (NEG); PHENCYCLIDINE, URINE NEG (NEG)
[2017-06-28 14:15] LABS: ACETAMINOPHEN < 2 ug/ml (10-30)
[2017-06-28 14:19] LABS: THYROID STIMULATING HORMONE 0.939 uIu/ml (0.300-4.500)
[2017-06-28] MEDS ORDERED: hydrOXYzine HCL 25 MG TAB PO PRN ×2 (16:45)
[2017-06-28] MEDS ORDERED: SODIUM CHLORIDE 0.65% NA SOLN 45 ML (OCEAN) PRN (16:45)
[2017-06-28] MEDS ORDERED: BISMUTH SUBSALICYLATE PER ML OMNICELL CHARGE PO PRN (16:45)
[2017-06-28] MEDS ORDERED: ACETAMINOPHEN 325 MG TAB PO PRN (16:45)
[2017-06-28] MEDS ORDERED: MAGNESIUM HYDROXIDE SUSP 30 ML UDC PO PRN (16:45)
[2017-06-28] MEDS ORDERED: ALUMINUM/MAGNESIUM SUSP 30 ML UDC PO PRN (16:45)
[2017-06-28 16:47] LABS: URINE APPEARANCE CLOUDY (CLEAR); URINE BILIRUBIN NEG (NEG); URINE COLOR YELLOW; URINE EPITHELIAL CELL AUTO >30 /lpf (0-5); URINE NITRITE NEG (NEG); URINE PH 6.5 (4.5-7.5); URINE SPECIFIC GRAVITY 1.028 (1.000-1.030); UROBILINOGEN NEG (NEG)
[2017-06-28 16:48] LABS: MANUAL MICROSCOPIC REQUIRED? NO; REVIEW REQ? YES
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
[2017-06-28 17:58] VITALS: O2SAT 97
[2017-06-28 20:37] VITALS: BP 103/65; PULSE 76; TEMP 36.8; Ht 154.9 cm; Wt 49.6 kg
[2017-06-28] MEDS ORDERED: PNEUMOCOCCAL POLYSACCHARIDES 25 MCG/0.5 ML VIAL/SYR IM. ONE (21:15)
[2017-06-28] MEDS ORDERED: PNEUMOCOCCAL ADMINISTRATION CHARGE ONE (21:15)
[2017-06-28] MEDS ORDERED: NURSING VERBAL MED ORDER ONE (23:15)
[2017-06-29 06:56] VITALS: BP_SYST 89; BP_SYST 94; BP_DIAS 57; PULSE 62; TEMP 36.8
[2017-06-29] MEDS: ESCITALOPRAM OXALATE 20 MG TAB PO SCH (09:06)
[2017-06-29] MEDS: DOXYCYCLINE HYCLATE 50 MG CAP PO SCH (09:06)
[2017-06-29] MEDS: ARIPIprazole TAB 5 MG TAB PO SCH (09:06)
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
[2017-06-30 06:57] VITALS: BP_SYST 88; BP_SYST 89; BP_DIAS 51; BP_DIAS 56; PULSE 55; PULSE 87; TEMP 36.7
[2017-06-30] MEDS: DOXYCYCLINE HYCLATE 50 MG CAP PO SCH (08:38)
[2017-06-30] MEDS: ARIPIprazole TAB 5 MG TAB PO SCH (08:38)
[2017-06-30] MEDS: ESCITALOPRAM OXALATE 20 MG TAB PO SCH (08:38)
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
[2017-07-01 07:08] VITALS: BP_SYST 85; BP_SYST 87; BP_DIAS 47; BP_DIAS 50; PULSE 52; PULSE 87; TEMP 36.6
[2017-07-01] MEDS: ARIPIprazole TAB 5 MG TAB PO SCH (09:41)
[2017-07-01] MEDS: DOXYCYCLINE HYCLATE 50 MG CAP PO SCH (09:41)
[2017-07-01] MEDS: ESCITALOPRAM OXALATE 20 MG TAB PO SCH (09:41)
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
[2017-07-02 06:55] VITALS: BP_SYST 80; BP_SYST 85; BP_DIAS 46; BP_DIAS 47; PULSE 56; PULSE 87; TEMP 36.5
[2017-07-02] MEDS: ARIPIprazole TAB 5 MG TAB PO SCH (08:23)
[2017-07-02] MEDS: ESCITALOPRAM OXALATE 20 MG TAB PO SCH (08:23)
[2017-07-02] MEDS: DOXYCYCLINE HYCLATE 50 MG CAP PO SCH (09:03)
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
[2017-07-03 06:54] VITALS: BP_SYST 91; BP_SYST 99; BP_DIAS 57; BP_DIAS 58; PULSE 55; PULSE 80; TEMP 36.8
[2017-07-03] MEDS: ARIPIprazole TAB 5 MG TAB PO SCH (08:21)
[2017-07-03] MEDS: DOXYCYCLINE HYCLATE 50 MG CAP PO SCH (08:22)
[2017-07-03] MEDS: ESCITALOPRAM OXALATE 20 MG TAB PO SCH (08:22)
[2017-07-03] MEDS ORDERED: LMC25 PO (08:50)
[2017-07-03] MEDS ORDERED: LAMO25TA PO (08:53)
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
== END 2017-07-03 10:40 | disposition home or self-care (01) | DRG 885 ==
LOC: C.EDB 12:15 → C.MHU 17:42 → ENRESERV 17:55
PROVIDERS: ADMIT Psychiatry & Neurology Child & Adolescent Psychiatry; ATTEND Psychiatry & Neurology Child & Adolescent Psychiatry
DX: F33.2 Major depressive disorder, recurrent severe without psychotic features (principal); R45.851 Suicidal ideations; L70.9 Acne, unspecified; Z79.899 Other long term (current) drug therapy; Z81.8 Family history of other mental and behavioral disorders; Z81.3 Family history of other psychoactive substance abuse and dependence

== ENCOUNTER 2017-08-13 16:35 | Emergency (ER) | payer OTHER ==
[~2017-08-13] VITALS: Ht 154.9 cm; Wt 50.9 kg
[~2017-08-13 16:35] MED LIST changes: +LAMO25TA PO
[2017-08-13 16:43] VITALS: TEMP 36.9; Ht 154.9 cm; Wt 50.9 kg
[2017-08-13] MEDS ORDERED: SODIUM CHLORIDE 0.9% 1000ML 1,000 ML IV STA (16:47)
[2017-08-13 17:15] LABS: BASO % 0.2 %; BASO ABS # 0.01 K/uL (0-0.2); EOS % 1.5 %; EOS ABS # 0.07 K/uL (0-0.5); HEMATOCRIT 37.7 % (37-47); HEMOGLOBIN 13.2 g/dL (12.0-16.0); IG# 0.02 K/uL (0.00-0.02); LYMPH % 34.6 %; LYMPH ABS # 1.58 K/uL (1.2-3.4); MEAN CELL VOLUME 91.3 fL (80-100); MEAN PLATELET VOLUME 9.8 fL (7.4-10.4); MONO % 13.6 %; MONO ABS # 0.62 K/uL (0.11-0.59); NEUT % 49.7 %; NEUT ABS # 2.26 K/uL (1.4-6.5); PLATELET COUNT 191 K/uL (130-400); RED CELL DISTRIBUTION WIDTH CV 12.6 % (11.5-14.5); RED CELL DISTRIBUTION WIDTH SD 42.2 fL (36.4-46.3); WHITE BLOOD COUNT 4.56 K/uL (4.8-10.8)
--- NOTE | 2017-08-13 17:18 | DIAGNOSTIC IMAGING REPORT ---
CHEST ONE VIEW PORTABLE CLINICAL HISTORY: Chest Pain dyspnea COMPARISON STUDY: No previous studies for comparison. FINDINGS: The bones soft tissues and hemidiaphragms are normal. The cardiomediastinal silhouette is normal. The lungs are clear. The pulmonary vasculature is normal. IMPRESSION: Negative chest. The above report was generated using voice recognition software. It may contain grammatical, syntax or spelling errors. Electronically signed by: Jonah Mckinney M.D. 08/13/2017 5:16 PM Dictated Date/Time: 08/13/2017 5:16 PM
[2017-08-13 17:32] LABS: ALBUMIN 4.2 gm/dl (3.4-5.0); ALT/SGPT 21 U/L (12-78); BLOOD UREA NITROGEN 10 mg/dl (7-18); CALCIUM 8.8 mg/dl (8.5-10.1); CARBON DIOXIDE 26 mmol/L (21-32); CREATININE 0.63 mg/dl (0.60-1.20); GLUCOSE 84 mg/dl (70-99); LIPASE 135 U/L (73-393); POTASSIUM 3.6 mmol/L (3.5-5.1); SODIUM 137 mmol/L (136-145)
[2017-08-13 17:37] LABS: ALKALINE PHOSPHATASE 65 U/L (45-117); AST/SGOT 20 U/L (15-37); TOTAL PROTEIN 8.1 gm/dl (6.4-8.2)
[2017-08-13] MEDS ORDERED: SULFAMETHOXAZOLE/TRIMETHOPRIM DS 800/160MG TAB PO STA (19:30)
[2017-08-13] MEDS ORDERED: SULF800T23 PO (19:33)
[2017-08-13 20:14] VITALS: BP 99/52; PULSE 92; O2SAT 100
--- NOTE | 2017-08-13 22:44 | EMERGENCY ROOM VISIT NOTE ---
History Report prepared by Livier: Papa Stovall Under the Supervision of: Dr. Cristóbal Ahmadi D.O. First contact with patient: 16:21 Stated Complaint: SYNCOPE History of Present Illness The patient is a 22 year old female who presents to the Emergency Room with complaints of an episode of near-syncope occurring today. The patient states that she was standing today on campus, when she began to feel lightheaded and faint. She notes that she collapsed, but remembers the event and did not hit her head. She reports that she has had similar symptoms when she has panic attacks, but did not feel like she had a panic attack today. The patient states that she has also had a bad cough that has been mildly productive since 4 days ago. She notes that she was not coughing today during her episode. She also complains of congestion, throat inflammation, and SOB. She reports that she has had a UTI for the past week and currently takes Lexapro, doxycycline, Lamictal, and control. Pt denies headache, change in vision, fevers, chest pain, nausea, vomiting, diarrhea, pain with urination, vaginal bleeding/discharge, and melena. Patient was brought in by EMS today. Source of History: patient Onset: today Position: other (global) Quality: other (near-syncope) Timing: other (an episode) Associated Symptoms: + cough (mildly productive), + SOB (mildly productive) , No fevers, No headache, No chest pain, No nausea, No vomiting, No diarrhea, No urinary symptoms Note: She complains of feeling lightheaded and faint during her episode. She also complains of congestion and throat inflammation. Review of Systems See HPI for pertinent positives & negatives. A total of 10 systems reviewed and were otherwise negative. Past Medical & Surgical Medical Problems: (1) Acne (2) Anxiety (3) Depression (4) Major depressive disorder, recurrent severe without psychotic features (5) Suicide attempt Family History No pertinent family history stated. Social History Housing Status: lives with roommate Occupation Status: student Current/Historical Medications Scheduled Aripiprazole (Abilify), 5 MG PO DAILY Control Pills ( Control Pills), 1 TAB PO DAILY Doxycycline Monohydrate (Monodox), 50 MG PO DAILY Escitalopram Oxalate (Lexapro), 20 MG PO DAILY Lamotrigine (Lamictal), 1 TAB PO UD Sulfamethoxazole-Trimethoprim (Bactrim Ds 800MG/160MG), 1 TAB PO BID Allergies Coded Allergies: No Known Allergies (Unverified , 08/13/17) Physical Exam Vital Signs Date Time Temp Pulse Resp B/P (MAP) Pulse Ox O2 Delivery O2 Flow Rate FiO2 08/13/17 20:14 92 99/52 100 08/13/17 17:15 90 08/13/17 16:43 36.9 95 122/67 100 Room Air Physical Exam GENERAL: Sitting up in bed, alert, well appearing, well nourished, no distress, non-toxic EYE EXAM: normal conjunctiva. PERRL and EOM's intact. OROPHARYNX: no exudate, no erythema, lips, buccal mucosa, and tongue normal and mucous membranes are moist NECK: supple, no nuchal rigidity, no adenopathy, non-tender LUNGS: Clear to auscultation. Normal chest wall mechanics HEART: no murmurs, S1 normal and S2 normal ABDOMEN: abdomen soft, non-tender, normo-active bowel sounds, no masses, no rebound or guarding. BACK: Back is symmetrical on inspection and there is no deformity, no midline tenderness, no CVA tenderness. SKIN: no rashes and no bruising UPPER EXTREMITIES: upper extremities are grossly normal. LOWER EXTREMITIES: No pitting edema. NEURO EXAM: Normal sensorium, cranial nerves II-XII intact, normal speech, no weakness of arms, no weakness of legs. No drift. Finger to nose intact. Gross sensation intact. Medical Decision & Procedures ER Provider Diagnostic Interpretation: Radiology results as stated below per my review and the radiologist's interpretation: CHEST ONE VIEW PORTABLE CLINICAL HISTORY: Chest Pain dyspnea COMPARISON STUDY: No previous studies for comparison. FINDINGS: The bones soft tissues and hemidiaphragms are normal. The cardiomediastinal silhouette is normal. The lungs are clear. The pulmonary vasculature is normal. IMPRESSION: Negative chest. The above report was generated using voice recognition software. It may contain grammatical, syntax or spelling errors. Electronically signed by: Jonah Mckinney M.D. 08/13/2017 5:16 PM Laboratory Results 08/13/17 17:00 Red Blood Count 4.13, Mean Corpuscular Volume 91.3, Mean Corpuscular Hemoglobin 32.0, Mean Corpuscular Hemoglobin Concent 35.0, Mean Platelet Volume 9.8, Neutrophils (%) (Auto) 49.7, Lymphocytes (%) (Auto) 34.6, Monocytes (%) (Auto) 13.6, Eosinophils (%) (Auto) 1.5, Basophils (%) (Auto) 0.2, Neutrophils # (Auto ) 2.26, Lymphocytes # (Auto) 1.58, Monocytes # (Auto) 0.62, Eosinophils # (Auto ) 0.07, Basophils # (Auto) 0.01 08/13/17 17:00 Test 08/13/17 16:55 08/13/17 17:00 Urine Color YELLOW Urine Appearance CLEAR (CLEAR) Urine pH 6.5 (4.5-7.5) Urine Specific [place] 1.007 (1.000-1.030) Urine Protein NEG (NEG) Urine Glucose (UA) NEG (NEG) Urine Ketones NEG (NEG) Urine Occult Blood NEG (NEG) Urine Nitrite NEG (NEG) Urine Bilirubin NEG (NEG) Urine Urobilinogen NEG (NEG) Urine Leukocyte Esterase MODERATE (NEG) Urine WBC (Auto) 10-30 /hpf (0-5) Urine RBC (Auto) 0-4 /hpf (0-4) Urine Hyaline Casts (Auto) 0 /lpf (0-5) Urine Epithelial Cells (Auto) 0-5 /lpf (0-5) Urine Bacteria (Auto) NEG (NEG) White Blood Count 4.56 K/uL (4.8-10.8) Red Blood Count 4.13 M/uL (4.2-5.4) Hemoglobin 13.2 g/dL (12.0-16.0) Hematocrit 37.7 % (37-47) Mean Corpuscular Volume 91.3 fL (80-100) Mean Corpuscular Hemoglobin 32.0 pg (25-34) Mean Corpuscular Hemoglobin Concent 35.0 g/dl (32-36) Platelet Count 191 K/uL (130-400) Mean Platelet Volume 9.8 fL (7.4-10.4) Neutrophils (%) (Auto) 49.7 % Lymphocytes (%) (Auto) 34.6 % Monocytes (%) (Auto) 13.6 % Eosinophils (%) (Auto) 1.5 % Basophils (%) (Auto) 0.2 % Neutrophils # (Auto) 2.26 K/uL (1.4-6.5) Lymphocytes # (Auto) 1.58 K/uL (1.2-3.4) Monocytes # (Auto) 0.62 K/uL (0.11-0.59) Eosinophils # (Auto) 0.07 K/uL (0-0.5) Basophils # (Auto) 0.01 K/uL (0-0.2) RDW Standard Deviation 42.2 fL (36.4-46.3) RDW Coefficient of Variation 12.6 % (11.5-14.5) Immature Granulocyte % (Auto) 0.4 % Immature Granulocyte # (Auto) 0.02 K/uL (0.00-0.02) D-Dimer 310 ug/L FEU (0-500) Anion Gap 7.0 mmol/L (3-11) Est Creatinine Clear Calc Drug Dose 107.4 ml/min Estimated GFR () 149.7 Estimated GFR (Non- 129.1 BUN/Creatinine Ratio 16.5 (10-20) Calcium Level 8.8 mg/dl (8.5-10.1) Total Bilirubin 0.3 mg/dl (0.2-1) Direct Bilirubin < 0.1 mg/dl (0-0.2) Aspartate Amino Transf (AST/SGOT) 20 U/L (15-37) Alanine Aminotransferase (ALT/SGPT) 21 U/L (12-78) Alkaline Phosphatase 65 U/L (45-117) Troponin I < 0.015 ng/ml (0-0.045) Total Protein 8.1 gm/dl (6.4-8.2) Albumin 4.2 gm/dl (3.4-5.0) Lipase 135 U/L (73-393) Laboratory results per my review. Medications Administered Medications (Trade) Dose Ordered Sig/Gab Route Start Time Stop Time Status Last Admin Dose Admin Sodium Chloride 1,000 ml @ 999 mls/hr Q1H1M STAT IV 08/13/17 16:47 08/13/17 17:47 DC 08/13/17 16:47 999 MLS/HR Trimethoprim/ Sulfamethoxazole (Septra Ds 800/ 160MG Tab) 1 tab NOW STAT PO 08/13/17 19:30 08/13/17 19:31 DC 08/13/17 19:56 1 TAB ECG Indication: syncope Rate (beats per minute): 78 Rhythm: sinus rhythm Findings: no ectopy, other (Normal axis) ED Course ED COURSE: Vital signs were reviewed and were normal. The patients medical record was reviewed The above diagnostic studies were performed and reviewed. ED treatments and interventions as stated above. 1640: The patient was evaluated in room B5. A complete history and physical examination was performed. 1647: Sodium Chloride 1000 ml @ 999 mls/hr IV 1730: I reevaluated and updated the patient. 1930: Trimethoprim/Sulfamethoxazole 1 tab PO 2015: Upon reevaluation, the patient is stable.I discussed my findings with the patient and she understands and agrees with the treatment plan. Based on the patients age, coexisting illnesses, exam and lab findings the decision to treat as an outpatient was made. The patient remained stable while under my care. The patient appeared well at the time of discharge. Medical Decision Differential diagnosis includes etiologies such as vasovagal event, infection, hypoglycemia, electrolyte abnormalities, cardiac sources, intracerebral event, toxicologic, neurologic, as well as others were entertained. Patient is a 22-year-old female who presents to ER for a near syncopal episode. She has had a cough and congestion. She notes she has had this before in the past. No history diabetes, hypertension, hyperlipidemia, CAD or sudden in her family any age. She is a low risk for PEs. CBC was unremarkable. BMP all LFTs, bilirubin and lipase is normal. Troponin was negative. EKG was unremarkable. D-dimer was negative. She does have urinary symptoms which have been present for the past week. She notes this feels that her previous UTIs. With the UA showing white cells and leukocytes did elect to treat her. She had absolutely no abdominal pain. Patient was given fluids and felt completely back to baseline. She was discharged follow-up with PCP as an outpatient. Discussed with Pt concerning signs and symptoms to watch out for. Pt was instructed to follow up with their PCP and discussed with the patient their option to return to the ED at anytime for persistent or worsening symptoms. The appropriate anticipatory guidance and out-patient management, including indications for return to the emergency department, were explained at length to the patient and understood. Medication Reconcilliation Current Medication List: was personally reviewed by me Blood Pressure Screening Patient's blood pressure: Normal blood pressure Blood pressure disposition: Did not require urgent referral Impression Primary Impression: Near syncope Additional Impression: UTI (urinary tract infection) Scribe Attestation The scribe's documentation has been prepared under my direction and personally reviewed by me in its entirety. I confirm that the note above accurately reflects all work, treatment, procedures, and medical decision making performed by me. Departure Information Dispostion Home / Self-Care Prescriptions Sulfamethoxazole-Trimethoprim (Bactrim Ds 800MG/160MG) 1 Tab Tab 1 TAB PO BID, #14 TAB Prov: Cristóbal Ahmadi, DO 08/13/17 Forms HOME CARE DOCUMENTATION FORM, IMPORTANT VISIT INFORMATION Patient Instructions My [facility] Additional Instructions Please follow up with your primary care doctor with in the next 24 hours. Any worsening of your symptoms, please return to the ED immediately. This includes any fevers greater than 100.4, worsening pain, chest pain, shortness breath, persistent nausea, vomiting, unable to eat or drink, or any other concerning signs or symptoms from your standpoint. Please take Tylenol or Motrin as needed for pain. Please take the antibiotic as prescribed. Problem Qualifiers Additional Impression: UTI (urinary tract infection) Urinary tract infection type: site unspecified Hematuria presence: without hematuria Qualified Codes: N39.0 - Urinary tract infection, site not specified
== END 2017-08-13 20:15 | disposition home or self-care (01) ==
LOC: EDBD 16:35 → C.EDB 16:37
DX: R55 Syncope and collapse (principal); N39.0 Urinary tract infection, site not specified; R05 Cough; R09.81 Nasal congestion; F41.9 Anxiety disorder, unspecified; F32.9 Major depressive disorder, single episode, unspecified; L70.9 Acne, unspecified; Z79.3 Long term (current) use of hormonal contraceptives